=== PATIENT | female | born 1955 | race Caucasian/White ===

== ENCOUNTER → 2019-01-08 | Outpatient (CLI) | payer BC ==
--- NOTE | 2019-01-08 14:57 | PCVCIMAG ---
APPROVED REPORT Imaging Protocol: Rest Tc-99m/Stress Tc-99m 1 day Study performed: 01/08/2019 09:22:59 Indication: Chest discomfort, Dyspnea Patient Location: Out-Patient Stress Nurse: Torrie Banegas RN CO Tech:Jo Canales [facility] Ht: 5 ft 1 in Wt: 162 lbs BSA: 1.73 m2 HR: 745 bpm BP: 139/81 mmHg BMI: 30.60 Rhythm: Normal Sinus Rhythm Medical History Medical History: HTN Medications: Lisinopril-HCTZ, Singulair Allergies: Aleve Cardiac Risk Factors: Age, FHX of CAD Pretest Chest Pain Characteristics: No chest pain Exercise History: Indeterminate Resting Data Rest SPECT myocardial perfusion imaging was performed in supine position 45 minutes following the intravenous injection of 9.7 mCi of Tc-99m Sestamibi. Time of rest injection: 0845 Date: 01/08/2019 Administration Route: IV Administration Site: Left AC Exercise Stress At peak stress, the patient was injected intravenously with 34.9mCi of Tc-99m Sestamibi. Time of stress injection: 1000 Date: 01/08/2019 Administration Route: IV Administration Site: Left AC Patient continued to exercise for 1 minute(s). Gated Stress SPECT was performed 45 minutes after stress injection. The images were gated to evaluate regional wall motion and calculate left ventricular ejection fraction. Stress Test Details Stress Test: Exercise stress testing was performed using a Drew protocol. HRMax Heart Rate (APMHR): 156 bpm Resting HR: 75 bpmTarget HR (85% APMHR): 132 bpm Max HR Achieved: 144 bpm % of APMHR: 92 Recovery HR: 86 bpm HR response to stress: Normal HR response to stress BP Resting BP: 139/81 mmHg Max BP: 147/76 mmHg Recovery BP: 125/76 mmHg BP response to stress: Normal blood pressure response to stress. ECG Resting ECG: Normal Sinus Rhythm Stress ECG: Sinus Tachycardia ST Change: Non-ischemic Arrhythmia: PVC's Recovery ECG: Sinus Rhythm Recovery ST Deviation: 0 mm Clinical Reason for Termination: Maximal effort, Dyspnea Stress Symptoms: Dyspnea Exercise duration: 7 min 01 sec Exercise capacity: 10.10 METs Overall Exercise Capacity for Age: Average Scale: Active Angina Score: None Symptoms resolved during recovery. Study Quality Study: Good Study Data Post stress, the left ventricular ejection was 73%.. SSS: 1 SRS: 0 SDS: 1 TID = 0.95. Perfusion Normal left ventricular perfusion. Normal perfusion on both the stress and rest images. Wall Motion Normal left ventricular wall motion. Nuclear Conclusion ECG Findings: negative for ischemia Clinical Findings: negative for ischemia Nuclear Findings: negative for ischemia Exercise Capacity: not assessed Left Ventricular Function: normal Risk Study: low This study is of low probability for inducible ischemia or prior infarct. Normal global and segmental LV systolic function.
== END | disposition home or self-care (01) ==
LOC: PCVCIMAG 08:26
PROVIDERS: ATTEND Internal Medicine Cardiovascular Disease
DX: R07.89 Other chest pain (principal); R06.09 Other forms of dyspnea; Z88.8 Allergy status to other drugs, medicaments and biological substances
CPT/HCPCS: 78452; 93017; A9500

== ENCOUNTER → 2019-01-09 | Outpatient (CLI) | payer BC ==
--- NOTE | 2019-01-09 15:59 | PCVCIMAG ---
EXAM: BILATERAL SUPERFICIAL VENOUS DUPLEX INDICATION: Leg pain and swelling. FINDINGS: Right leg: No thrombus in the common femoral, main femoral, or popliteal veins. These veins are compressible. Right Great Saphenous Vein: At the saphenofemoral junction the diameter is 9.2 mm, in the mid thigh it is 5.0 mm, and in the calf it is 3.6 mm. There is not significant venous insufficiency/reflux throughout. Venous insufficiency/reflux duration is 0 seconds. Right Small Saphenous Vein: At the saphenopopliteal junction the diameter is 5.0 mm, and in the calf it is 2.8 mm. There is not significant venous insufficiency/reflux throughout. Venous insufficiency/reflux duration is 0 seconds. There is not a cranial extension present. Left leg: No thrombus in the common femoral, main femoral, or popliteal veins. These veins are compressible. Left Great Saphenous Vein: At the saphenofemoral junction the diameter is 9.5 mm, in the mid thigh it is 5.0 mm, and in the calf it is 3.9 mm. There is not significant venous insufficiency/reflux throughout. Venous insufficiency/reflux duration is 0 seconds. Left Small Saphenous Vein: At the saphenopopliteal junction the diameter is 4.3 mm, and in the calf it is 3.2 mm. There is not significant venous insufficiency/reflux throughout. Venous insufficiency/reflux duration is 0 seconds. There is not a cranial extension present. IMPRESSION: Right Great Saphenous Vein: No significant venous insufficiency/reflux is present as noted above. Right Small Saphenous Vein: No significant venous insufficiency/reflux is present as noted above. Left Great Saphenous Vein: No significant venous insufficiency/reflux is present as noted above. Left Small Saphenous Vein: No significant venous insufficiency/reflux is present as noted above. LOC:[id number]
--- NOTE | 2019-01-09 16:12 | PCVCIMAG ---
APPROVED REPORT Study performed: 01/09/2019 14:49:54 EXAM: Comprehensive 2D, Doppler, and color-flow Echocardiogram Patient Location: Echo lab Room #: 2Status: routine BSA: 1.73 HR: 79 bpmBP: 144/80 mmHg Rhythm: NSR Other Information Study Quality: Adequate Risk Factors: Cardiac Risk Factors: HTN, FHX of CAD Indications Chest Pressure Dyspnea Hypertension/HDD 2D Dimensions IVSd: 7.61 (7-11mm)LVOT Diam: 20.80 (18-24mm) LVDd: 43.09 mm PWd: 9.18 (7-11mm)Ascending Ao: 31.31 (22-36mm) LVDs: 27.01 (25-40mm) Left Atrium: 33.04 (27-40mm) Aortic Root: 25.52 mm LV Single Plane 4CH: 55.55 % LV Single Plane 2CH: 72.78 % Biplane EF: 64.7 % Volumes Left Atrial Volume (Systole) Single Plane 4CH: 49.16 mLSingle Plane 2CH: 49.52 mL Biplane LA Volume: 53.00 mLLA ESV Index: 30.00 mL/m2 Aortic Valve AoV Peak Miguel.: 1.40 m/s AO Peak Gr.: 7.87 mmHgLVOT Max P.06 mmHg LVOT Max V: 0.87 m/s ROBERT Vmax: 2.12 cm2 Mitral Valve E/A Ratio: 1.2 MV Decel. Time: 145.44 ms MV E Max Miguel.: 0.94 m/s MV A Miguel.: 0.81 m/s IVRT: 79.58 ms TDI E/Lateral E': 10.44E/Medial E': 13.43 Medial E' Miguel.: 0.07 m/s Lateral E' Miguel.: 0.09 m/s Pulmonary Valve PV Peak Miguel.: 0.88 m/sPV Peak Gr.: 3.10 mmHg Pulmonary Vein P Vein S: 0.61 m/sP Vein A: 0.32 m/s P Vein D: 0.33 m/sP Vein A Dur.: 62.3 msec P Vein S/D Ratio: 1.85 Tricuspid Valve TR Peak Miguel.: 2.45 m/s TR Peak Gr.: 23.93 mmHg TV Vmax: 0.69 m/sPA Pressure: 31.00 mmHg Left Ventricle The left ventricle is normal size. There is normal LV segmental wall motion. There is normal left ventricular wall thickness. Left ventricular systolic function is normal. The left ventricular ejection fraction is within the normal range. LVEF is 60-65%. The left ventricular diastolic function is normal. Right Ventricle The right ventricle is normal size. The right ventricular systolic function is normal. Atria The left atrium size is normal. The right atrium size is normal. Aortic Valve Aortic valve is trileaflet. The aortic valve is normal in structure and function. No aortic regurgitation is present. There is no aortic valvular stenosis. Mitral Valve The mitral valve is normal in structure. Mild mitral regurgitation. No evidence of mitral valve stenosis. Tricuspid Valve The tricuspid valve is normal in structure. Mild tricuspid regurgitation with a PA pressure of 22 mmHg. Pulmonic Valve The pulmonary valve is normal in structure. There is no pulmonic valvular regurgitation. Great Vessels The aortic root is normal in size. The ascending aorta is normal in size. Aortic arch is normal in caliber. IVC is normal in size and collapses >50% with inspiration. Pericardium There is no pericardial effusion. There is no pleural effusion. <Conclusion> The left ventricle is normal size. There is normal left ventricular wall thickness. Left ventricular systolic function is normal. The right ventricle is normal size. The left atrium size is normal. The aortic valve is normal in structure and function. Mild mitral regurgitation. Mild tricuspid regurgitation with a PA pressure of 22 mmHg.
== END | disposition home or self-care (01) ==
LOC: PCVCIMAG 13:29
PROVIDERS: ATTEND Internal Medicine Cardiovascular Disease
DX: I08.1 Rheumatic disorders of both mitral and tricuspid valves (principal); M79.89 Other specified soft tissue disorders; R07.89 Other chest pain; R06.00 Dyspnea, unspecified; I10 Essential (primary) hypertension
CPT/HCPCS: 93306; 93970